=== PATIENT | male | born 1985 | race Caucasian/White ===

== ENCOUNTER → 2023-11-28 | Outpatient (REF) | payer OTHER, SELFPAY | LOC: DHSLP | PROVIDERS: ATTENDING PHYSICIAN Internal Medicine Critical Care Medicine; FAMILY PHYSICIAN Physician Assistant | DX: G47.30 Sleep apnea, unspecified (principal); R06.83 Snoring | CPT/HCPCS: 95800 ==

== ENCOUNTER 2025-01-17 14:40 | Emergency (ER) | payer BC, SELFPAY ==
[2025-01-17 14:44] VITALS: BP 139/95
[2025-01-17 15:16] LABS: Urine Albumin 1+ (Neg - Trace); Urine Bilirubin Negative (Negative); Urine Character Clear (Clear); Urine Color Yellow; Urine Glucose Negative (Negative); Urine Ketone Negative (Negative); Urine Leukocyte 1+ (Negative); Urine Nitrite Negative (Negative); Urine Occult Blood 1+ (Negative); Urine Specific Gravity 1.015 (<1.030); Urine Urobilinogen 1+ (Neg - 1+)
[2025-01-17 15:17] LABS: % Basophils 0.3 % (0-2); % Eosinophils 1.2 % (0-6); % Immature Granulocytes 0.4 % (0-0.5); % Lymphocytes 18.3 % (20.5-51.1); % Monocytes 12.1 % (1.7-9.3); % Neutrophils 67.7 % (42.2-75.2); Absolute Eosinophils 0.2 10^3/uL (0-0.7); Absolute Immature Granulocytes 0.1 10^3/uL (0-0.05); Absolute Lymphocytes 2.5 10^3/uL (1.2-3.4); Absolute Monocytes 1.7 10^3/uL (0.1-0.6); Absolute Neutrophils 9.3 10^3/uL (1.4-6.5); Hematocrit 42.2 % (39.0-52.0); Hemoglobin 14.1 g/dL (13.0-18.0); Mean Corp Hgb Conc. 33.4 g/dL (33.0-37.0); Mean Corpuscular Volume 89.8 fL (80.0-94.0); Mean Platelet Volume 10.7 fL (7.4-10.4); Nucleated Red Blood Cells % 0 % (-); Platelet Count 274 10^3/uL (130-400); Red Cell Dist. Width 13.3 % (11.5-14.5); White Blood Cell Count 13.8 10^3/uL (4.8-10.8)
[2025-01-17 15:21] LABS: Urine Bacteria Few (Negative); Urine Red Blood Cell 0-2 /HPF (0-2); Urine Squamous Cell 0-2 /LPF (Few); Urine White Cell 0-2 /HPF (0-5)
[2025-01-17 15:22] LABS: ALT (SGPT) 42 U/L (0-50); AST (SGOT) 28 U/L (17-59); Albumin 4.9 g/dl (3.5-5.0); Alkaline Phosphatase 50 U/L (38-126); Blood Urea Nitrogen 12 mg/dl (9-20); Calcium 10.1 mg/dl (8.4-10.2); Carbon Dioxide 26 mmol/L (22-30); Chloride 96 mmol/L (98-107); Glucose 118 mg/dl (70-99); Lipase 72 U/L (23-300); Potassium 4.4 mmol/L (3.5-5.1); Sodium 134 mmol/L (135-145); Total Bilirubin 1.7 mg/dl (0.2-1.3); Total Protein 7.9 g/dl (6.3-8.2); eGFR > 60.00
[2025-01-17 17:50] VITALS: BP 121/85
--- NOTE | 2025-01-17 18:24 | ED.GENMED ---
History of Present Illness
General
Chief Complaint: Abdominal Pain
Time Seen by Provider: 01/17/25 18:02
History of Present Illness
History of Present Illness:
39-year-old male presents the emergency department for evaluation of left lower quadrant pain beginning yesterday. He reports a low-grade fever yesterday but this resolved today. Is a history of diverticulitis and states it feels similar. No
nausea or vomiting. No prior abdominal surgeries.
Past History
Past History
ED Past Medical History: HTN
ED Past Surgical History: None
Social History
Tobacco: Non-smoker
Living: with family
Employment: Employed
Family History
Family History: Hypertension
Review of Systems
Review of Systems
Allergies reviewed?: Yes
All Other Systems: ROS reviewed and negative except as documented in HPI and ROS
Phy Exam
Physical Exam
Physical Exam:
GEN: Well appearing, NAD, WDWN
HEENT: Oral mucosa moist, no scleral icterus
Cardiac: Regular rate
Lung: No respiratory distress, no tachypnea
Abdomen: Soft, left lower quadrant tenderness, no rigidity or peritoneal signs
MSK: No gross deformity or injuries
Skin: Good color, no pallor or jaundice, no rashes
Neuro: AO x3, moves all extremities freely
Psych: Calm, cooperative
Course
Orders/Labs/Results
Orders:
Orders
01/17/25 14:55
Complete Blood Count/With Diff Urgent
Comprehensive Metabolic Panel Urgent
Lipase Urgent
Urinalysis Reflex To Culture Urgent
Date Specimen was Collected: 01/17/25
Time Specimen was Collected: 14:47
Urine Microscopic Reflex Cult Urgent
Urine Culture Urgent
SANDEEP Source: U
Specimen Description:
Date Specimen was Collected: 01/17/25
Time Specimen was Collected: 14:47
Abnormal Lab Results
01/17/25
14:55
WBC 13.8 H 10^3/uL
(4.8-10.8)
MPV 10.7 H fL
(7.4-10.4)
Abs Immat Gran (auto) 0.1 H 10^3/uL
(0-0.05)
Absolute Neuts (auto) 9.3 H 10^3/uL
(1.4-6.5)
Absolute Monos (auto) 1.7 H 10^3/uL
(0.1-0.6)
Lymphocytes % 18.3 L %
(20.5-51.1)
Monocytes % 12.1 H %
(1.7-9.3)
Sodium 134 L mmol/L
(135-145)
Chloride 96 L mmol/L
(98-107)
Glucose 118 H mg/dl
(70-99)
Total Bilirubin 1.7 H mg/dl
(0.2-1.3)
Ur Occult Blood Reflex 1+ A
(Negative)
Leukocyte Esterase Rfl 1+ A
(Negative)
Urine Bacteria (Reflex) Few A
(Negative)
Urine Albumin (Reflex) 1+ A
(Neg - Trace)
01/17/25 14:55
01/17/25 14:55
Vital Signs
Initial and Last Documented VS:
Initial Vital Signs
Temp Pulse Resp BP Pulse Ox
98.7 F 106 16 139/95 98
01/17/25 14:44 01/17/25 14:44 01/17/25 14:44 01/17/25 14:44 01/17/25 14:44
Last Documented Vital Signs
Temp Pulse Resp BP Pulse Ox
98.6 F 99 16 121/85 97
01/17/25 17:50 01/17/25 17:50 01/17/25 17:50 01/17/25 17:50 01/17/25 17:50
MDM/Problems Addressed
MDM/Problems Addressed:
Patient has a reassuring physical exam with only mild to moderate tenderness. Given that he has a nonperitoneal exam for cytosis I do not see indication for CT at this point as I suspect the likelihood of a perforation or abscess is low. Will
start the patient on Augmentin, strictly advised to maintain clear liquid diet and follow-up with the emergency department in 3 to 4 days if symptoms are not improving
*Critical Care Note
Total Time (30-74mins, 75-104mins- exclusive of procedures): Not Applicable
ED Attending Note
-
Portions of this chart may have been created with voice recognition software.� Occasional wrong word or��sound alike� substitutions may have occurred due to the inherent limitations of voice recognition software.
Discharge Plan
Departure
Patient Disposition: Home (Routine Discharge)
Date of Disposition: 01/17/25
Time of Disposition: 18:24
Patient with high blood pressure during this ER visit?: No
Discharge Problem:
Acute diverticulitis
Instructions: Clear Liquid Diet, Diverticulitis (DC)
Prescriptions:
New
amoxicillin-pot clavulanate 875-125 mg tablet
1 tab PO BID Qty: 20 0RF
No Action
lisinopril 10 MG tablet
10 mg PO DAILY Qty: 30 0RF
doxycycline hyclate 100 MG capsule
100 mg PO Q12 Qty: 20 0RF
Interventions
Interventions:
*Risk Screen - Suicide Last Done: 01/17/25 14:44
*Neglect/Abuse Screening Last Done: 01/17/25 14:44
*Nursing Disposition Last Done: 01/17/25 18:48
FJ-Dsowfa-Rjdhfuwaaj Assessment Last Done: 01/17/25 18:25
Discharge Date and Time
Discharge Date/Time: 01/17/25 18:49
Print Language: ESTONIAN
== END 2025-01-17 18:49 | disposition home or self-care (01) ==
LOC: EMR 14:40
PROVIDERS: EMERGENCY PHYSICIAN Emergency Medicine
DX: K57.92 Diverticulitis of intestine, part unspecified, without perforation or abscess without bleeding (principal); I10 Essential (primary) hypertension
CPT/HCPCS: 99283; 80053; 81003; 81015; 83690; 85025; 87086

== ENCOUNTER 2025-08-24 04:38 | Emergency (ER) | payer BC, SELFPAY ==
[2025-08-24 04:48] VITALS: BP 130/91
[2025-08-24] MEDS: TYLENOL 1000 MG PO (05:28)
[2025-08-24] MEDS: TORADOL 15 MG IV (05:29)
[2025-08-24 05:31] VITALS: BMI 33.7
--- NOTE | 2025-08-24 05:31 | ED.GENMED ---
History of Present Illness
<Violet Mae PA-C - Last Filed: 08/24/25 10:56>
General
Chief Complaint: Abdominal Pain
Source: patient
Exam Limitations: none
Time Seen by Provider: 08/24/25 04:54
Nursing documentation reviewed up to this point in time: agreed with
History of Present Illness
History of Present Illness:
The patient is a 40-year-old male who presented with left-sided abdominal pain, resembling previous episodes of diverticulitis. The pain began three mornings ago and he did not require hospitalization, as per his last evaluation. The patient was
advised to follow up with a mat maker but did not do so. He reports waking in the night with chills and a mild fever of 100.6�F, prompting this visit as advised by a previous physician. The pain sometimes radiates to the back and is
affected by movement, notably upon pressing the left side. The patient denies nausea or vomiting, but experiences frequent urination without burning, raising suspicion of a possible urinary tract infection, though he has a history of urinary tract
infections associated with diverticulitis. He took two doses of corticosteroids left from a prior prescription without significant improvement.
Past History
<Violet Mae PA-C - Last Filed: 08/24/25 10:56>
Past History
ED Past Medical History: HTN
ED Past Surgical History: None
Social History
Tobacco: Non-smoker
Living: with family
Employment: Employed
Family History
Family History: Hypertension
Review of Systems
<Violet Mae PA-C - Last Filed: 08/24/25 10:56>
Review of Systems
All Other Systems: ROS reviewed and negative except as documented in HPI and ROS
Phy Exam
<Violet Mae PA-C - Last Filed: 08/24/25 10:56>
General Physical Exam
General Presentation: well appearing
General age: appears stated age
General Skin: diaphoretic
General Habitus: normal
ENT Exam
ENT Exam: EOMI
Cardiovascular Exam
Cardiovascular Exam: regular rate/rhythm
Pulmonary Exam
Pulmonary Exam: lungs clear and no respiratory distress
Gastrointestinal Exam
Gastrointestinal Exam: normal bowel sounds and guarding
Palpation: left upper quadrant: Moderate tenderness, left lower quadrant: Moderate tenderness, right upper quadrant: No tenderness and right lower quadrant: No tenderness
Auscultation of Abdomen: normal
Neurological Exam
Neurological Exam: alert and oriented x3
Skin Exam
Skin Exam: normal color and warm/dry
Psychiatric Exam
Psychiatric Exam: normal mood/affect
Sepsis
<Violet Mae PA-C - Last Filed: 08/24/25 10:56>
Sepsis Screening
Sepsis Assessment: Sepsis Ruled Out
Sepsis Screen
Sepsis Screen: Sepsis Ruled Out
Date: 08/24/25
Time: 10:56
<Rosalino Gonzalez PA-C - Last Filed: 08/25/25 08:11>
Sepsis Screen
Sepsis Screen: Sepsis Ruled Out
Date: 08/25/25
Time: 08:11
Course
<NADIRA Horne Last Filed: 08/24/25 10:56>
Orders/Labs/Results
Orders:
Orders
08/24/25 05:12
CT Abd/pelvis W Iv Cont Urgent
Comment:
Reason For Exam: LLQ pain
Acetaminophen [Tylenol] 1,000 mg PO NOW STA
08/24/25 05:14
Ketorolac [Toradol] 15 mg IV NOW STA
08/24/25 05:25
Complete Blood Count/With Diff Urgent
Comprehensive Metabolic Panel Urgent
Lactic Acid Urgent
Urinalysis Reflex To Culture Urgent
Date Specimen was Collected: 08/24/25
Time Specimen was Collected: 05:25
Urine Microscopic Reflex Cult Urgent
08/24/25 06:16
Piperacillin/Tazo 4.5 Gram [Zosyn] 4.5 gram in 100 ml IV NOW
Abnormal Lab Results
08/24/25
05:25
WBC 17.6 H 10^3/uL
(4.8-10.8)
RBC 4.40 L 10^6/uL
(4.70-6.10)
MPV 11.1 H fL
(7.4-10.4)
Abs Immat Gran (auto) 0.1 H 10^3/uL
(0-0.05)
Absolute Neuts (auto) 14.2 H 10^3/uL
(1.4-6.5)
Absolute Lymphs (auto) 1.0 L 10^3/uL
(1.2-3.4)
Absolute Monos (auto) 2.1 H 10^3/uL
(0.1-0.6)
Neutrophils % 80.8 H %
(42.2-75.2)
Lymphocytes % 5.9 L %
(20.5-51.1)
Monocytes % 12.1 H %
(1.7-9.3)
Glucose 142 H mg/dl
(70-99)
Alkaline Phosphatase 36 L U/L
(38-126)
Ur Occult Blood Reflex 1+ A
(Negative)
Urine Albumin (Reflex) 1+ A
(Neg - Trace)
08/24/25 05:25
08/24/25 05:25
Vital Signs
Initial and Last Documented VS:
Initial Vital Signs
Temp Pulse Resp BP Pulse Ox
100.2 F 111 22 130/91 94
08/24/25 04:48 08/24/25 04:48 08/24/25 04:48 08/24/25 04:48 08/24/25 04:48
Last Documented Vital Signs
Temp Pulse Resp BP Pulse Ox
98.5 F 91 18 107/64 96
08/24/25 06:31 08/24/25 06:31 08/24/25 06:31 08/24/25 06:31 08/24/25 06:31
<Rosalino Gonzalez PA-C - Last Filed: 08/25/25 08:11>
Orders/Labs/Results
Orders:
Orders
08/24/25 05:12
CT Abd/pelvis W Iv Cont Urgent
Comment:
Reason For Exam: LLQ pain
Acetaminophen [Tylenol] 1,000 mg PO NOW STA
08/24/25 05:14
Ketorolac [Toradol] 15 mg IV NOW STA
08/24/25 05:25
Complete Blood Count/With Diff Urgent
Comprehensive Metabolic Panel Urgent
Lactic Acid Urgent
Urinalysis Reflex To Culture Urgent
Date Specimen was Collected: 08/24/25
Time Specimen was Collected: 05:25
Urine Microscopic Reflex Cult Urgent
08/24/25 06:16
Piperacillin/Tazo 4.5 Gram [Zosyn] 4.5 gram in 100 ml IV NOW
Abnormal Lab Results
08/24/25
05:25
WBC 17.6 H 10^3/uL
(4.8-10.8)
RBC 4.40 L 10^6/uL
(4.70-6.10)
MPV 11.1 H fL
(7.4-10.4)
Abs Immat Gran (auto) 0.1 H 10^3/uL
(0-0.05)
Absolute Neuts (auto) 14.2 H 10^3/uL
(1.4-6.5)
Absolute Lymphs (auto) 1.0 L 10^3/uL
(1.2-3.4)
Absolute Monos (auto) 2.1 H 10^3/uL
(0.1-0.6)
Neutrophils % 80.8 H %
(42.2-75.2)
Lymphocytes % 5.9 L %
(20.5-51.1)
Monocytes % 12.1 H %
(1.7-9.3)
Glucose 142 H mg/dl
(70-99)
Alkaline Phosphatase 36 L U/L
(38-126)
Ur Occult Blood Reflex 1+ A
(Negative)
Urine Albumin (Reflex) 1+ A
(Neg - Trace)
08/24/25 05:25
08/24/25 05:25
Vital Signs
Initial and Last Documented VS:
Initial Vital Signs
Temp Pulse Resp BP Pulse Ox
100.2 F 111 22 130/91 94
08/24/25 04:48 08/24/25 04:48 08/24/25 04:48 08/24/25 04:48 08/24/25 04:48
Last Documented Vital Signs
Temp Pulse Resp BP Pulse Ox
98.5 F 91 18 107/64 96
08/24/25 06:31 08/24/25 06:31 08/24/25 06:31 08/24/25 06:31 08/24/25 06:31
Cristinalt;Violet Mae PA-C - Last Filed: 08/24/25 10:56>
MDM/Problems Addressed
Differential Diagnosis Includes:
ddx include perforated diverticulitis, intraabdominal abscess, kidney stone, colitis
MDM/Problems Addressed:
The patient is a 40-year-old male who presented with left-sided abdominal pain, resembling previous episodes of diverticulitis. He developed a fever as well which prompted emergency department evaluation. On physical exam, he is diaphoretic and has
left sided abdominal tenderness with guarding. I am concerned for a perforated diverticuitis. IV zosyn started. Case signed out to Lawrence WADDELL pending CT scan results.
<Violet Mae PA-C - Last Filed: 08/24/25 10:56>
*Pulse Oximetry
SaO2: 94
Oxygen Mode of Delivery: Room air
Patient hypoxic: no
*Critical Care Note
Total Time (30-74mins, 75-104mins- exclusive of procedures): Not Applicable
<Rosalino Gonzalez PA-C - Last Filed: 08/25/25 08:11>
Update Note
Update Note:
Assumed care of pt from Violet Mae at shift change [address] for suspected diverticulitis, concerning exam w/ leukocytosis suspicious for perf/abscess
Patient reassessed, his pain is dramatically improved. He does not wish to be admitted to the hospital, advised him that at this time his scan shows no evidence for perforation or abscess thus discharged home does not reasonable despite his fever.
He received 1 dose of IV antibiotics thus initiating p.o. therapy is reasonable at this time. Will recommend outpatient colorectal surgery evaluation once antibiotics are complete. ED return parameters discussed
ED Attending Note
<Violet Mae PA-C - Last Filed: 08/24/25 10:56>
-
Portions of this chart may have been created with voice recognition software.� Occasional wrong word or��sound alike� substitutions may have occurred due to the inherent limitations of voice recognition software.
Discharge Plan
Departure
Patient Disposition: Home (Routine Discharge)
Date of Disposition: 08/24/25
Time of Disposition: 08:07
Patient with high blood pressure during this ER visit?: No
Discharge Problem:
Acute diverticulitis
Instructions: Clear Liquid Diet, Diverticulitis (DC)
Prescriptions:
New
amoxicillin-pot clavulanate 875-125 mg tablet
1 tab PO BID Qty: 20 0RF
oxycodone-acetaminophen [Percocet] 5-325 mg tablet
1 tab PO Q6HPRN PRN (Reason: pain) Qty: 10 0RF
No Action
lisinopril 10 MG tablet
10 mg PO DAILY Qty: 30 0RF
doxycycline hyclate 100 MG capsule
100 mg PO Q12 Qty: 20 0RF
amoxicillin-pot clavulanate 875-125 mg tablet
1 tab PO BID Qty: 20 0RF
Referrals:
Prasanth Juan MD [Active, ColoRectal] - Call in 1-3 days for appt
Activity Restrictions/Additional Instructions:
Return to the ER if symptoms worsen, if you develop a fever or pain that does not resolve within 48-72 hours
Interventions
Interventions:
*Risk Screen - Suicide Last Done: 08/24/25 04:48
*General Assessment Last Done: 08/24/25 05:31
*Neglect/Abuse Screening Last Done: 08/24/25 05:31
*ED- Fall Risk Assessment Last Done: 08/24/25 05:31
*ED COVID-19 Vaccine History Last Done: 08/24/25 05:31
*ED Influenza Vaccine History Last Done: 08/24/25 05:31
*Nursing Disposition Last Done: 08/24/25 08:15
EP-Wnjlqx-Dwzuinqell Assessment Last Done: 08/24/25 05:33
Discharge Date and Time
Discharge Date/Time: 08/24/25 08:15
Print Language: SERBIAN
[2025-08-24 05:57] LABS: Hematocrit 39.0 % (39.0-52.0); Hemoglobin 13.2 g/dL (13.0-18.0); Mean Corp Hgb Conc. 33.8 g/dL (33.0-37.0); Mean Corpuscular Volume 88.6 fL (80.0-94.0); Nucleated Red Blood Cells % 0 % (-); Platelet Count 249 10^3/uL (130-400); Red Cell Dist. Width 12.8 % (11.5-14.5)
[2025-08-24 06:14] LABS: Urine Character Clear (Clear)
[2025-08-24 06:15] LABS: ALT (SGPT) 30 U/L (0-50); AST (SGOT) 24 U/L (17-59); Albumin 4.7 g/dl (3.5-5.0); Alkaline Phosphatase 36 U/L (38-126); Blood Urea Nitrogen 12 mg/dl (9-20); Calcium 9.4 mg/dl (8.4-10.2); Carbon Dioxide 23 mmol/L (22-30); Chloride 103 mmol/L (98-107); Estimated Creatinine Clearance > 125 ml/min; Glucose 142 mg/dl (70-99); Potassium 4.6 mmol/L (3.5-5.1); Sodium 135 mmol/L (135-145); Total Protein 7.3 g/dl (6.3-8.2); eGFR > 60.00
[2025-08-24 06:22] LABS: Urine Red Blood Cell 0-2 /HPF (0-2); Urine Squamous Cell 0-2 /LPF (Few); Urine White Cell 0-2 /HPF (0-5)
[2025-08-24 06:31] VITALS: BP 107/64
[2025-08-24] MEDS: ZOSYN 100 IV (06:32)
== END 2025-08-24 08:15 | disposition home or self-care (01) ==
LOC: EMR 04:38
PROVIDERS: Physician Assistant; EMERGENCY PHYSICIAN Student in an Organized Health Care Education/Training Program
DX: K57.32 Diverticulitis of large intestine without perforation or abscess without bleeding (principal); I10 Essential (primary) hypertension; Z82.49 Family history of ischemic heart disease and other diseases of the circulatory system
CPT/HCPCS: 99284; 96374; 96375; 74177; 80053; 81003; 81015; 83605; 85025; Q9967

== ENCOUNTER 2025-10-18 06:11 | Inpatient (IN) | payer BC, SELFPAY ==
[2025-10-07 09:54] LABS: Hematocrit 44.3 % (39.0-52.0); Hemoglobin 14.7 g/dL (13.0-18.0); Mean Corp Hgb Conc. 33.2 g/dL (33.0-37.0); Mean Corpuscular Volume 89.3 fL (80.0-94.0); Platelet Count 343 10^3/uL (130-400); Red Cell Dist. Width 13.3 % (11.5-14.5)
[2025-10-07 10:09] LABS: INR 0.96; PT 13.0 Sec (11.4-14.6)
[2025-10-07 10:10] LABS: APTT 28.5 Sec (23.4-35.0)
[2025-10-07 10:35] LABS: ALT (SGPT) 51 U/L (0-50); AST (SGOT) 36 U/L (17-59); Albumin 5.1 g/dl (3.5-5.0); Alkaline Phosphatase 35 U/L (38-126); Blood Urea Nitrogen 12 mg/dl (9-20); Calcium 10.0 mg/dl (8.4-10.2); Carbon Dioxide 28 mmol/L (22-30); Chloride 98 mmol/L (98-107); Glucose 100 mg/dl (70-99); Potassium 4.6 mmol/L (3.5-5.1); Sodium 134 mmol/L (135-145); Total Protein 8.0 g/dl (6.3-8.2); eGFR > 60.00
[2025-10-07 11:38] LABS: Glycohemoglobin (HgbA1c) 6.0 % (4.0-5.9)
[2025-10-07 14:02] VITALS: BMI 35.9
--- NOTE | 2025-10-07 18:06 | PTCARENOTE ---
Abnormal ECG (dated 10/07/2025) reviewed by Dr. Valenzuela. No further orders at this time.
[2025-10-18] VITALS (13 sets, daily range): BP systolic 101–133; BP diastolic 61–93; BMI 35.9
[2025-10-18] MEDS: CELEBREX 200 MG PO (07:09)
[2025-10-18] MEDS: LYRICA 150 MG PO (07:09)
[2025-10-18] MEDS: TYLENOL 1000 MG PO ×3 (07:10→23:54)
[2025-10-18] MEDS: HEPARIN 5000 UNITS SC (07:10)
[2025-10-18] MEDS: NORMOSOL-R/PLASMALYTE-A 1000 IV ×2 (07:34→14:51)
--- NOTE | 2025-10-18 07:42 | PTCARENOTE ---
Patient has a possible cellultitis (per patient) underneath the Left armpit. Dr. Juan made aware and saw the area. Will monitor patient.
--- NOTE | 2025-10-18 12:17 | W.IMMPOSTOP ---
Addendum entered and electronically signed by Prasanth Juan MD 10/18/25 12:40:
Updated via phone
Original Note:
Surgical Immed Post Op Note
-
Primary Surgeon: Prasanth Juan MD
Assisting Surgeon: GIBSON Ayala
Pre-op Diagnosis: recurrent diverticulitis
Post-op Diagnosis: recurrent diverticulitis
Procedure Performed: robotic sigmoidectomy, flexible sigmoidoscopy, lysis of adhesions, mesenteric angiography with ICG, laparoscopic TAP block
Anesthesia Type: general
Specimen / Cultures: partial sigmoid
Estimated Blood Loss: 25mL
IVF: 1.5 L
UOP: 850 mL
Complications: None
Operative Findings: Entered with Veress needle, placed 4 ports, assist port and made 4 cm Pfannenstiel; area of colon thickening seen at the junction of the descending and sigmoid colon associated with some thickening of the mesentery; redundant
sigmoid seen that was very healthy; performed flexible sigmoidoscopy to assess health of the mucosa; minimal stool residue which was lavaged; rectum and distal sigmoid appeared healthy with minimal diverticula; area of thickening noted at about
45-50 cm from AV, thickening noted of the mucosa associated with diverticula; mucosa became healthy at around 35 centimeters from the AV; elected to proceed with partial colectomy; mobilized the sigmoid and descending colon in a lateral to medial
fashion up to the level of the splenic flexure; tested the extra long 28 mm EEA stapler and easily reached to about 30 cm from the AV; divided the distal sigmoid at 28 cm with a blue load; divided the mesentery close to the mesenteric border to the
distal descending colon; injected ICG and good perfusion noted; prepared anvil in the usual fashion and stapled with the blue load; performed EEA stapled anastomosis, donuts intact x 2, negative leak test, anastomosis intact on flexible
sigmoidoscopy, confirmed at about 28 cm from the anal verge; performed laparoscopic TAP block; closed in the usual fashion
--- NOTE | 2025-10-18 12:26 | OR.RPT ---
Operative Report
Operative Report
DATE OF OPERATION: 10/18/2025
SURGEON: Prasanth Juan MD
PREOPERATIVE DIAGNOSIS: Recurrent diverticulitis
POSTOPERATIVE DIAGNOSIS: Recurrent diverticulitis
OPERATION: Robotic sigmoidectomy, adhesiolysis greater than 10 minutes, flexible sigmoidoscopy, repair of colon injury, mesenteric angiography with ICG, laparoscopic TAP block
ASSISTANTS:
1. GIBSON Ayala
ANESTHESIA: General
ESTIMATED BLOOD LOSS: 25 mL
IVF: 1.5 L
URINE OUTPUT: 850 mL
FINDINGS:
1. Area of thickening noted at the junction of the descending and sigmoid colon associated with mesenteric thickening, about 8 cm in length; sigmoid colon was significantly redundant
2. Performed partial colectomy and EEA stapled anastomosis from the distal descending to the distal sigmoid colon; donuts intact x 2, negative leak test, anastomosis at about 28 cm from the anal verge and intact on flexible sigmoidoscopy
SPECIMENS:
1. Partial sigmoid
DRAINS: None
COMPLICATIONS: No immediate complications.
INDICATIONS: The patient is a 40-year-old male who presented after an uncomplicated episode of diverticulitis. He has had more than 5 episodes of diverticulitis starting 5 years ago and his attacks are becoming more frequent. I reviewed the risks
and benefits of continued nonoperative measures versus elective surgery. After a lengthy discussion, the patient elected to proceed with surgery. The operation was discussed with the patient in detail, including the risks, benefits and
alternatives. Risks described included, but not limited to, bleeding, infection, anastomotic leak, damage to nearby structures (i.e.- ureter, bowel, solid organs), incisional hernia, need for ostomy creation, conversion to open, recurrence of
diverticulitis and anesthetic risks, including but not limited to MT, stroke, DVT/PE, respiratory failure and other organ failure. The patient understood and agreed to proceed.
PROCEDURE IN DETAIL: The patient was taken to the operating room and placed on the operating table in supine position. Sequential compression devices were placed bilaterally. General anesthesia was induced and the patient was intubated without
complication. The patient was placed in lithotomy position with both arms tucked. Reese catheter was placed with sterile technique. The abdomen was shaved, prepped and draped in a sterile fashion. A time-out was performed verifying the correct
patient, procedure, operative site, positioning, and special equipment. Anesthesia placed an orogastric tube. IV Ancef and Flagyl were given preincision. A marking pen was used to shila out the midline.
An 8 mm incision at Guzman's point was made with an 11 blade scalpel. A Veress needle was used to gain abdominal access. After 3 clicks, the insufflation was connected to the Veress needle and the opening pressure was noted to be high. The needle
was removed and repositioned. After 3 clicks, insufflation was restarted and the opening pressure was noted to be less than 8 mmHg. The abdomen was insufflated to a pressure of 12 mmHg. An 8 mm robotic trocar was inserted. The robotic camera was
advanced and intra-abdominal placement was confirmed. The abdomen was examined. No injuries were noted from port entry or from the Veress needle. No concerning lesions were noted on the surface of the liver or the peritoneum. The remaining three
8mm robotic ports were placed under direct visualization in a diagonal fashion from Guzman's point to the right lower quadrant, as well as an 8mm assist port in the right lateral mid abdomen, taking care to avoid injury to the right epigastric
vessels. The left upper quadrant port was changed to the air seal port.
A 4 cm Pfannenstiel incision was created 2 fingerbreadths above the pubic symphysis. This was carried down to the anterior fascia with electrocautery and hemostasis was assured. The fascia was incised to just beyond the length of the skin
incision. The fascia was grasped with Ronen's and elevated. The adhesions to the anterior fascia were taken down bluntly from the rectus abdominis muscle and the midline attachment was taken down with electrocautery. This was performed both
superiorly and inferiorly to our incision. The rectus was split along the midline, first scoring the linea alba with electrocautery, then bluntly with a Anjelica clamp to reveal the peritoneum, which was grasped and elevated with Kellys. The
peritoneum was incised with Metzenbaum scissors, taking care to avoid injury to intraperitoneal structures. The peritoneum was incised cranially and caudally to the greatest extent that our incision would allow, taking care to avoid injury to the
bladder. A small Glenn with port cap was placed and a robotic 12 mm port was placed through the port cap. The patient was placed in 28 degrees trendelenburg and 10 degrees [id number]. The robot was docked from the patient's left side. From
the RLQ to Guzman's point, the instruments introduced were the scissors, camera, bipolar grasper and tip-up grasper, respectively.
The omentum was retracted over the transverse colon. There was thickening noted at the junction of the descending colon and sigmoid colon, as well as a small amount of adhesions to the left lateral sidewall of the abdomen. This was consistent with
the findings on the CT scan. The thickening extended to about 8 cm in length. The sigmoid colon distally was noted to be quite redundant and appeared healthy. There was no palpable thickening of the colon wall throughout the majority of the
sigmoid colon. I lysed a few adhesions from the sigmoid colon to the left pelvic brim and left lower quadrant. I was to identify the left ureter easily and confirmed with vermiculation. I kept it safe from my dissection. After the sigmoid colon
was mobilized, I performed a flexible sigmoidoscopy to evaluate the mucosa for evidence of diverticular disease. The lubricated sigmoidoscope was inserted transanally and advanced under direct visualization. There was minimal stool residue in the
rectum and distal sigmoid colon which was lavaged. The mucosa of the rectum and distal sigmoid appeared very healthy with minimal diverticula. I advanced to the area of thickening, which was about 45-50 cm from the anal verge. The mucosa was
noted to be somewhat thickened, but not inflamed. There were diverticula in the area. I slowly withdrew and the mucosal thickening resolved by about 35 cm. Further distal, there was minimal diverticula. Therefore, I elected to perform a partial
colectomy of the involved colon in order to salvage his healthy distal sigmoid colon. I passed sizers in increasing size and was able to advance to about 30 cm without difficulty. I tested the extra long 28 mm EEA stapler and was able to advance
this to about 25 cm without difficulty. Therefore, I elected to proceed with EEA stapled anastomosis.
I proceeded with a lateral to medial mobilization of the sigmoid and descending colon. I took down the lateral attachments up to the splenic flexure and mobilized the mesentery from the retroperitoneum, taking care to avoid injury to Gerota's
fascia and the left ureter. While I was dissecting in the left upper quadrant, I noticed a serosal injury along the proximal descending colon due to retraction. This injury was less than 1 cm in size. I repaired this with three 2-0 Vicryl
imbricating stitches. I created a hole in the mesentery in the distal sigmoid colon using the vessel sealer. I stapled across this point with the 60 mm robotic stapler with a blue load. The staple line was hemostatic. I divided the mesentery
with the vessel sealer. I took this to my anticipated proximal transection point, staying close to the mesenteric border of the colon. A point was selected on healthy descending colon a few centimeters proximal to the area of thickening.
Anesthesia injected ICG and I confirmed adequate perfusion to my intended transection point. A colotomy in the devascularized segment of colon was created using the robotic scissors at a point distal to my proposed proximal transection point. The
anvil with a long Prolene suture attached at the tip was carefully passed through the colotomy and advanced proximally up the descending colon, with the long Prolene remaining outside of the colon. The colotomy was closed around the Prolene stitch
using a V-Loc running stitch. The robotic stapler with a blue load was used to staple and divide the descending colon at our proposed transection point where adequate perfusion was noted on firefly. The specimen was placed in the left upper
quadrant. The Prolene attached to the anvil was grasped and pulled through the staple line after removing a few elisa. I grasped and elevated the anvil and cleaned up the staple line from intervening mesentery and fat. There was 1 diverticula
noted to interfere with the staple line. This was tightened to the post with a 2-0 Vicryl stitch in a pursestring fashion. Now, the staple line of the anvil seated nicely.
I checked the reach of the proposed anastomosis once more and it was a little tight. I mobilized more of the lateral attachments and freed up more of the mesentery of the descending colon from the retroperitoneum. The reach was checked again and
was now plenty adequate. The operative field was surveyed and hemostasis was ensured. The EEA stapler was passed transanally to the distal staple line. The pin was extended and was connected with the anvil. After ensuring there was no twist to
the mesentery and there was no tension, the EEA stapler was closed for 1 minute and then fired. Both donuts were intact. A leak test was performed by irrigating the anastomosis with saline, occluding the proximal lumen and insufflating with the
flexible sigmoidoscope. There was no evidence of leak from the anastomosis. Endoscopically, the anastomosis was intact without evidence of bleeding. The colorectum was desufflated and the flexible sigmoidoscope removed. The operative field,
including the left upper quadrant, was assessed once more and remained hemostatic.
The robotic instruments were removed and the robot was undocked. Using laparoscopic visualization, a TAP block was performed using a total of 30 mL of 0.25% Marcaine with epinephrine mixed with dexamethasone and injecting in the transverse
abdominis plane bilaterally. The remaining ports were removed under direct visualization and no bleeding was noted. The specimen was removed through the Pfannenstiel incision and was passed off as specimen. The Glenn wound protector was removed.
The Pfannenstiel incision was closed in layers. First, the peritoneum was closed with a running 0-Vicryl stitch. Then, the anterior fascia was closed using a #1 Stratafix suture. The incisions were irrigated. The remaining 30 cc of 0.25%
Marcaine with epinephrine mixed with dexamethasone were injected around the incisions. The incisions were closed with running subcuticular 4-0 Monocryl and dressed with Dermabond.
At this point, the procedure was complete. The patient was awoken and extubated without complication. All needle, sponge and instrument counts were reported as correct. The patient tolerated the procedure well and was transferred to the recovery
room in stable condition with the reese in place.
DICTATED BY: Prasanth Juan MD
[2025-10-18] MEDS: TORADOL 15 MG IV ×2 (14:52→20:51)
[2025-10-19] MEDS: TORADOL 15 MG IV ×3 (02:19→13:21)
[2025-10-19 03:24] VITALS: BP 101/65
[2025-10-19] MEDS: TYLENOL 1000 MG PO ×2 (05:40→12:01)
[2025-10-19 06:00] VITALS: BMI 35.0
[2025-10-19 06:46] LABS: Hematocrit 40.8 % (39.0-52.0); Hemoglobin 13.6 g/dL (13.0-18.0); Mean Corp Hgb Conc. 33.3 g/dL (33.0-37.0); Mean Corpuscular Volume 89.9 fL (80.0-94.0); Nucleated Red Blood Cells % 0 % (-); Platelet Count 406 10^3/uL (130-400); Red Cell Dist. Width 13.4 % (11.5-14.5)
[2025-10-19 07:10] VITALS: BP 119/78
[2025-10-19 07:43] LABS: Blood Urea Nitrogen 14 mg/dl (9-20); Calcium 9.6 mg/dl (8.4-10.2); Carbon Dioxide 25 mmol/L (22-30); Chloride 99 mmol/L (98-107); Estimated Creatinine Clearance > 125 ml/min; Glucose 114 mg/dl (70-99); Potassium 4.6 mmol/L (3.5-5.1); Sodium 133 mmol/L (135-145); eGFR > 60.00
--- NOTE | 2025-10-19 08:02 | W.PN.CRS1 ---
Today's Communication / Plan
-
dc reese
regular diet
oob
possible d/c later today
Assessment/Plan
-
POD#1 robotic sigmoidectomy, flexible sigmoidoscopy, lysis of adhesions, mesenteric angiography with ICG, laparoscopic TAP block
Hgb: 13.6, WBC: 19.1
vitals: normal
-Continue regular diet
-D/C reese
-Start lovenox for DVT prophylaxis. TEDS/SCDS in place.
-OOB as tolerated
-care transitions manager for dispo
-OR pathology pending
-Pain control: Tylenol/Toradol standing, Dilaudid/Roxicodone PRN
-D/C IVFs when tolerating po
-Lovenox for DVT prophylaxis if stays.
-Likely d/c later today
Subjective Data
Procedure
10/18/2025- robotic sigmoidectomy, flexible sigmoidoscopy, lysis of adhesions, mesenteric angiography with ICG, laparoscopic TAP block
Subjective Data
Date of Service: October 19, 2025
Patient states he feels well. He has little pain. He has flatus, no bowel movements yet. He is hungry. Denies nausea or vomiting.
Objective Data
-
Vital Signs
Temp Pulse Resp BP Pulse Ox
97.7 F 74 16 119/78 96
10/19/25 07:10 10/19/25 07:10 10/19/25 07:10 10/19/25 07:10 10/19/25 07:10
Intake & Output
10/18/25 10/19/25 10/20/25
06:59 06:59 06:59
Intake Total 3310 / 3310
Output Total 4700 / 4700
Balance -1390 / -1390
Intake:
Oral fluids 2240 / 2240
IV fluids (Total) 1070 / 1070
Normosal 200 / 200
Output:
Urine, Reese 4700 / 4700
Lab Results
10/19/25 05:47
10/19/25 05:47
Physical Exam
-
General: No Acute Distress and AOx3
Abdomen: Soft, Non Distended and Non Tender
Skin: Warm and Dry
Incision: Clear, Dry, Intact
[2025-10-19] MEDS: RELISTOR 12 MG SC (08:49)
[2025-10-19] MEDS: NORMOSOL-R/PLASMALYTE-A IV (09:55)
[2025-10-19 11:46] VITALS: BP 115/76
[2025-10-19] MEDS: FLUSH (NSS) 1 FLUSH IV (13:22)
--- NOTE | 2025-10-19 14:30 | CM ---
Addendum entered by Sindy Arnold 10/19/25 14:34:
Patient PCP is SARAH Gage and he uses the [facility] on [address] [place].
Original Note:
Patient seen at bedside on [address]. Patient stated that he lives with family and is on his way home now. Patient stated that he has PCP and pharmacy set up and he is eager to leave. CM will continue to follow for discharge planning needs.
Plan; home with family and no needs anticipated.
== END 2025-10-19 14:05 | disposition home or self-care (01) | DRG 331 ==
LOC: 2 SOUTH 06:11
PROVIDERS: ADMITTING PHYSICIAN Surgery; FAMILY PHYSICIAN Physician Assistant
PROC: 0DBN4ZZ Excision of Sigmoid Colon, Percutaneous Endoscopic Approach (ICD-10-PCS; 2025-10-18)
PROC: 8E0W4CZ Robotic Assisted Procedure of Trunk Region, Percutaneous Endoscopic Approach (ICD-10-PCS; 2025-10-18)
DX: K57.32 Diverticulitis of large intestine without perforation or abscess without bleeding (principal); I10 Essential (primary) hypertension; E78.5 Hyperlipidemia, unspecified; D72.829 Elevated white blood cell count, unspecified
CPT/HCPCS: 71046; 80048; 80053; 83036; 85025; 85027; 85610; 85730; 86850; 86900; 86901; 88307; 93005